=== PATIENT | male | born 1980 | race Caucasian/White ===

== ENCOUNTER 2018-07-09 13:31 | Inpatient (IN) ==
[2018-07-09] MEDS ORDERED: SENOKOT PO PRN (15:32)
[2018-07-09] MEDS ORDERED: MOTRIN PO PRN (15:32)
[2018-07-09] MEDS ORDERED: TUBERSOL ID ONE (15:32)
[2018-07-09] MEDS ORDERED: TYLENOL PO PRN (15:32)
[2018-07-09] MEDS ORDERED: ZOFRAN IV PRN (15:32)
[2018-07-09] MEDS ORDERED: SINEMET 25/100 PO PRN (15:32)
[2018-07-09] MEDS ORDERED: ATARAX PO PRN (15:32)
[2018-07-09] MEDS ORDERED: DESYREL PO PRN (15:32)
[2018-07-09] MEDS ORDERED: D5W 1,000 ML IV PRN (15:32)
[2018-07-09] MEDS ORDERED: IMODIUM PO PRN (15:32)
[2018-07-09] MEDS ORDERED: BENTYL PO PRN (15:32)
[2018-07-09] MEDS ORDERED: MAALOX PLUS LIQUID PO PRN (15:32)
[2018-07-09] MEDS ORDERED: NS 1,000 ML IV ONE (15:32)
[2018-07-09] MEDS ORDERED: ZOFRAN ODT PO PRN (15:32)
[2018-07-09] MEDS ORDERED: PHENOBARBITAL IV PRN (15:32)
[2018-07-09 16:01] LABS: HEMATOCRIT 38.8 % (42.0-52.0); HEMOGLOBIN 13.4 g/dL (14.0-18.0); MCH 29.8 PG (27-31); MCHC 34.5 g/dL (33-37); MCV 86.2 FL (81-99); MPV 8.3 FL (7.4-10.4); RBC 4.5 XMIL (4.7-6.1); RDW 12.4 % (11.5-14.5); WBC 6.84 X1000 (4.8-10.8)
[2018-07-09 16:30] LABS: INR 1.02; PROTIME 13.9 Seconds (11.0-16.0)
[2018-07-09 16:32] LABS: AMYLASE 72 U/L (20-200); LIPASE 75 U/L (13-60)
[2018-07-09 16:34] LABS: URINE SOURCE VOIDED
[2018-07-09 16:36] LABS: AGAP 9; ALBUMIN 4.6 g/dL (3.5-5.0); ALKALINE PHOSPHATASE 46 U/L (32-122); BUN 9 mg/dL (8-22); CHLORIDE 97 mmol/L (98-107); COSMO 270; CREATININE 0.8 mg/dL (0.7-1.2); ESTIMATED GFR > 60; GLUCOSE 91 mg/dL (70-104); GOT 27 U/L (10-34); GPT 24 U/L (10-44); POTASSIUM 3.9 mmol/L (3.5-5.1); SODIUM 136 mmol/L (136-145); TCO2 30 mmol/L (25-35); TOTAL PROTEIN 7.6 g/dL (6.3-8.3)
[2018-07-09 16:43] LABS: BILIRUBIN URINE NEGATIVE (NEGATIVE); BLOOD URINE NEGATIVE (NEGATIVE); CLARITY CLEAR (CLEAR); COLOR YELLOW; GLUCOSE URINE NEGATIVE (NEGATIVE); KETONE URINE NEGATIVE (NEGATIVE); LEUKOCYTES URINE NEGATIVE (NEGATIVE); NITRITE URINE NEGATIVE (NEGATIVE); PROTEIN URINE NEGATIVE (NEGATIVE); UROBILINOGEN URINE NORMAL
[2018-07-09] MEDS: ATARAX PO PRN (16:47)
[2018-07-09 16:56] LABS: UR AMPHETAMINES QUAL NONE DETECTED (NONE DETECT); UR BARBITUATES QUAL NONE DETECTED (NONE DETECT); UR BENZODIAZEPIN QUAL NONE DETECTED (NONE DETECT); UR CANNABINOIDS QUAL NONE DETECTED (NONE DETECT); UR COCAINE QUAL NONE DETECTED (NONE DETECT); UR METHADONE QUAL NONE DETECTED (NONE DETECT); UR METHAMPHETAMINE QUAL NONE DETECTED (NONE DETECT); UR OPIATES QUAL NONE DETECTED (NONE DETECT); UR OXYCODONE QUAL NONE DETECTED (NONE DETECT); UR PCP QUAL NONE DETECTED (NONE DETECT); UR PROPOXYPHENE QUAL NONE DETECTED (NONE DETECT); UR TCA QUAL NONE DETECTED (NONE DETECT)
[2018-07-09] MEDS: SUBOXONE 2 MG/0.5 MG FILM SL SCH (20:14)
[2018-07-09] MEDS: LIBRIUM PO SCH (20:33)
[2018-07-09] MEDS: TRILEPTAL PO SCH (20:34)
[2018-07-09] MEDS ORDERED: NON-FORMULARY MED (Brexpiprazole [Rexulti] 0 MG) PO SCH (21:00)
[2018-07-09] MEDS: SEROQUEL PO PRN (22:59)
[2018-07-10] MEDS: SUBOXONE 2 MG/0.5 MG FILM SL SCH ×2 (02:52→21:42)
[2018-07-10] MEDS: PROTONIX PO SCH (06:10)
--- NOTE | 2018-07-10 07:14 | HISTORY AND PHYSICAL ---
CHIEF COMPLAINT: Nausea, vomiting. HISTORY OF PRESENT ILLNESS: Patient is a 38-year-old male who presented to [facility] secondary to nausea, vomiting, abdominal pain, paresthesias, and opiate abuse. The patient states he is over taking a substance [id number] called Tiamon. He has been taking at least a bottle a day and has been doing that for quite some time. He has been attempting to stop but his symptoms become too severe. He has also been taking his only called Kava, which is more of a benzo-type product. He, again, has been abusing this as well. SOCIAL HISTORY: Patient is 38. He is single. He is on disability. Lives at home in [place]. PAST MEDICAL HISTORY: Schizophrenia, history of herpes, chronic anxiety, frequent paranoid reactions. MEDICATIONS: [*] 2 mg at bedtime, Trileptal 600 twice a day, Paxil 40, Vistaril 25 t.i.d. p.r.n. ALLERGIES: No known drug allergies. REVIEW OF SYSTEMS: CINA score is elevated to 8 secondary to nausea, vomiting, frequent temperature changes, frequent skin crawling, paroxysmal sweating, myalgias, restlessness, increased anxiety. Denies any chest pain, palpitation. Denies any fevers or chills. Denies any dysuria, frequency, urgency. Denies hesitancy, polyuria or polydipsia. FAMILY HISTORY: Noncontributory. SUBSTANCE ABUSE HISTORY: The patient has been in treatment several times over the last years. He is in [facility] in 2014 for up to 4 months and remained sober for approximately 1 year. He had attended [facility] in 2015 as an outpatient in 2014, and again in 2019, Began drinking at age 14, currently does not drink alcohol. Started marijuana at age 14, has not used in the past couple of years. Started stimulants at age 15, last use was 4-1/2 years ago. Started cocaine at age 16. Again, had not used in 4-1/2 years. Started opiates at age 18, has used off and on. Currently is taking Tiamon up to 15 or more pills a day. Started Kava at age 36, currently is taking 2 to 3 times per week. PHYSICAL EXAMINATION: VITAL SIGNS: Reviewed and stable. GENERAL: Patient is awake, alert, oriented. He is in no current respiratory distress. He is jittery and anxious with frequent episodes of fidgeting on exam. HEENT: Normocephalic. NECK: Supple. CARDIOVASCULAR: Regular rate. CHEST: Clear. ABDOMEN: Soft. EXTREMITIES: Moves all extremities. ASSESSMENT: 1. Nausea, vomiting. 2. Myalgias. 3. Paresthesias. 4. Paroxysmal sweating. 5. Polysubstance use and abuse. 6. Schizophrenia. PLAN: We will admit patient the hospital. Place him on Suboxone to wean him off Tiamon's illness. We will continue to wean over the next 3 days. Further orders as needed. cc: Je Bauer MD
--- NOTE | 2018-07-10 07:30 | PROGRESS NOTE ---
DATE: 07/10/2018 SUBJECTIVE: Patient without any new complaints. PHYSICAL EXAMINATION: Vital Signs: Reviewed and stable. Temperature 98.2 degrees, pulse 75, respiratory 20, BP 105/67. General: Patient is awake, alert. He is able to ambulate back and forth to the restroom without any difficulty. Physical exam is unchanged. HEENT: Normocephalic. Neck: Supple. Cardiovascular: Regular rate. Chest: Clear. ASSESSMENT: 1. Nausea, vomiting. 2. Abdominal pain. 3. Myalgias. 4. Paresthesias. 5. Paroxysmal sweating. 6. Polysubstance use and abuse. PLAN: We will continue patient in the hospital. Continue to wean Suboxone as tolerated. Further orders as needed. cc: Je Bauer MD
[2018-07-10] MEDS: THERA M PLUS PO SCH (09:34)
[2018-07-10] MEDS: PAXIL PO SCH (09:35)
[2018-07-10] MEDS: VITAMIN B-1 PO SCH (09:35)
[2018-07-10] MEDS: TRILEPTAL PO SCH ×2 (09:35→21:41)
[2018-07-10] MEDS: FOLIC ACID PO SCH (09:35)
[2018-07-10] MEDS: LIBRIUM PO SCH ×2 (09:35→21:41)
[2018-07-10] MEDS: NICODERM PATCH TD PRN (11:50)
[2018-07-10] MEDS ORDERED: SUBOXONE 2 MG/0.5 MG FILM SL SCH (12:00)
[2018-07-10] MEDS: ATARAX PO PRN (17:57)
[2018-07-10] MEDS: NON-FORMULARY MED PO SCH (21:41)
[2018-07-10] MEDS: SEROQUEL PO PRN ×2 (21:42→23:05)
[2018-07-11] MEDS: ATARAX PO PRN (00:47)
[2018-07-11] MEDS: PROTONIX PO SCH (06:24)
[2018-07-11] MEDS: SUBOXONE 2 MG/0.5 MG FILM SL SCH (08:48)
[2018-07-11] MEDS: PAXIL PO SCH (08:49)
[2018-07-11] MEDS: TRILEPTAL PO SCH ×2 (08:49→21:34)
[2018-07-11] MEDS: LIBRIUM PO SCH (08:49)
[2018-07-11] MEDS: THERA M PLUS PO SCH (08:49)
[2018-07-11] MEDS: VITAMIN B-1 PO SCH (08:49)
[2018-07-11] MEDS: FOLIC ACID PO SCH (08:49)
[2018-07-11] MEDS: NICODERM PATCH TD PRN (12:33)
[2018-07-11 18:39] LABS: BILIRUBIN URINE NEGATIVE (NEGATIVE); BLOOD URINE NEGATIVE (NEGATIVE); CLARITY CLEAR (CLEAR); COLOR YELLOW; GLUCOSE URINE NEGATIVE (NEGATIVE); KETONE URINE NEGATIVE (NEGATIVE); LEUKOCYTES URINE NEGATIVE (NEGATIVE); NITRITE URINE NEGATIVE (NEGATIVE); PH URINE 6.5; PROTEIN URINE NEGATIVE (NEGATIVE); UROBILINOGEN URINE NORMAL
[2018-07-11 18:43] LABS: URINE BACTERIA 1+ /HFP; URINE CAST NONE SEEN /LPF; URINE CRYSTAL NONE SEEN /HPF; URINE EPITHELIAL CELLS <10 /HPF (<10); URINE SOURCE CLEAN CATCH; URINE WBC <10 /HPF (<10); URINE YEAST NONE SEEN /HPF
[2018-07-11] MEDS ORDERED: SUBOXONE 2 MG/0.5 MG FILM SL SCH (21:00)
[2018-07-11] MEDS: NON-FORMULARY MED PO SCH (21:34)
[2018-07-11] MEDS: LIBRIUM PO PRN (21:46)
--- NOTE | 2018-07-11 22:01 | PROGRESS NOTE ---
DATE: 07/11/2018 SUBJECTIVE: Patient notes that he is still feeling terrible. He is still having muscle aches. No real nausea, vomiting, that seems to have resolved. Still having some sweating episodes. PHYSICAL EXAMINATION: Vital Signs: Reviewed. Temperature 98 degrees, pulse 82, respiratory 20, BP 121/70. General: Patient is awake, alert, currently in no respiratory distress. HEENT: Normocephalic. Neck: Supple. Cardiovascular: Regular rate. Chest: Clear. Abdomen: Soft. Extremities: Moves all extremities. ASSESSMENT: 1. Nausea, vomiting. 2. Abdominal pain. 3. Myalgias. 4. Paresthesias. 5. Paroxysmal sweating. 6. Opiate abuse, withdrawal and stabilization. 7. Chronic anxiety and depression. PLAN: We will continue patient in the hospital. We will decrease his Suboxone to 1 mg this afternoon and 2 mg this morning and we will follow. Hopefully, he will be ready for discharge over the next day or 2. cc: Je Bauer MD
[2018-07-12] MEDS: ATARAX PO PRN ×2 (01:22→08:36)
[2018-07-12] MEDS: LIBRIUM PO PRN ×2 (06:18→10:39)
[2018-07-12] MEDS: PROTONIX PO SCH (06:18)
[2018-07-12] MEDS: TRILEPTAL PO SCH ×2 (08:36→21:55)
[2018-07-12] MEDS: SUBUTEX SL SCH ×2 (08:36→21:55)
[2018-07-12] MEDS: THERA M PLUS PO SCH (08:37)
[2018-07-12] MEDS: FOLIC ACID PO SCH (08:37)
[2018-07-12] MEDS: VITAMIN B-1 PO SCH (08:37)
[2018-07-12] MEDS: PAXIL PO SCH (08:37)
[2018-07-12] MEDS: NICODERM PATCH TD PRN (11:48)
--- NOTE | 2018-07-12 19:32 | PROGRESS NOTE ---
DATE: 07/12/2018 SUBJECTIVE: Patient without new complaints. Still having some muscle aches and abdominal pain. Seems to tolerate the weaning process currently. PHYSICAL EXAMINATION: Vital Signs: Reviewed and stable. He is in no current respiratory distress. HEENT: Normocephalic. Neck: Supple. Cardiovascular: Regular rate. Chest: Clear. Abdomen: Soft. Extremities: Moves all extremities. Neurologic: No changes. ASSESSMENT: 1. Nausea and vomiting. 2. Abdominal pain. 3. Myalgias. 4. Paresthesias. 5. Paroxysmal sweating. 6. Polysubstance use and abuse. PLAN: We will continue the patient in the hospital, place him on 1 mg of Subutex today and tonight, and decrease to 1 mg tomorrow, and then hopefully discharge. cc: Je Bauer MD
[2018-07-12] MEDS: NON-FORMULARY MED PO SCH (21:55)
[2018-07-13] MEDS: PROTONIX PO SCH (06:17)
[2018-07-13] MEDS: DULCOLAX PR PRN (06:20)
[2018-07-13] MEDS ORDERED: SUBUTEX SL SCH (09:00)
[2018-07-13] MEDS: TRILEPTAL PO SCH ×2 (09:04→20:56)
[2018-07-13] MEDS: PAXIL PO SCH (09:04)
[2018-07-13] MEDS: THERA M PLUS PO SCH (09:05)
[2018-07-13] MEDS: FOLIC ACID PO SCH (09:05)
[2018-07-13] MEDS: VITAMIN B-1 PO SCH (09:05)
[2018-07-13] MEDS: NICODERM PATCH TD PRN (16:09)
[2018-07-13] MEDS: NON-FORMULARY MED PO SCH (20:56)
[2018-07-13] MEDS: SEROQUEL PO PRN (21:31)
--- NOTE | 2018-07-13 21:58 | PROGRESS NOTE ---
DATE: 07/13/2018 SUBJECTIVE: The patient has no new complaints. States he is feeling okay. Denies any suicidal or homicidal ideations. OBJECTIVE: Vital signs: Temperature 97.9, pulse 81, respiratory rate 20, BP 122/46. General: Patient is awake, alert. He is in no current respiratory distress. HEENT: Normocephalic. Neck: Supple. Cardiovascular: Regular rate. Chest: Clear. Abdomen: Soft. Extremities: Moves all extremities. ASSESSMENT: 1. Nausea and vomiting. 2. Abdominal pain. 3. Myalgias. 4. Paresthesias. 5. Paroxysmal sweating. 6. Opiate abuse, withdrawal and stabilization. 7. Chronic anxiety and depression. PLAN: Continue patient in the hospital. Wean Suboxone as tolerated. Hopefully can transition to rehab soon. cc: Je Bauer MD
[2018-07-14] MEDS: PROTONIX PO SCH ×2 (05:49→06:14)
[2018-07-14] MEDS: DULCOLAX PR PRN (05:51)
[2018-07-14] MEDS: SUBUTEX SL SCH ×2 (06:51→07:36)
[2018-07-14 07:15] VITALS: BP 123/76
[2018-07-14] MEDS: VITAMIN B-1 PO SCH (07:38)
[2018-07-14] MEDS: PAXIL PO SCH (07:38)
[2018-07-14] MEDS: TRILEPTAL PO SCH (07:38)
[2018-07-14] MEDS: FOLIC ACID PO SCH (07:38)
[2018-07-14] MEDS: THERA M PLUS PO SCH (07:39)
--- NOTE | 2018-07-14 10:16 | DISCHARGE SUMMARY ---
ADMISSION DATE: 07/09/2018 DISCHARGE DATE: 07/14/2018 DISCHARGE DIAGNOSES: 1. Nausea, vomiting. 2. Abdominal pain. 3. Myalgias. 4. Paresthesias. 5. Opiate abuse withdrawal and stabilization. 6. Chronic anxiety, depression. CONSULTATIONS: None. PROCEDURES: None. BRIEF HOSPITAL COURSE: The patient was admitted to the hospital treated in the usual fashion. Counseling performed each day by myself. He was placed on Suboxone and continue to wean down. Thankfully on discharge he is awake, alert. He is in no distress. Overall he is feeling better. Withdrawal symptoms have improved. He is still having issues with anxiety and depression. DISPOSITION: Patient be discharged to further inpatient rehab treatment for his substance abuse disorder. Discussed with him even after returning home from this he needs to can continue with outpatient drug counseling as well as life counseling. He will need to avoid all persons, places, situations which he has been using and abusing in the past. TIME SPENT: Greater than 30 minutes was spent in total care. cc: Je Bauer MD
== END 2018-07-14 10:43 | disposition home or self-care (01) | DRG 897 ==
LOC: P.DIRADM 13:40 → P.MEDSURG 14:28
PROVIDERS: ADMIT Family Medicine; ATTEND Family Medicine
CPT/HCPCS: 80053; 80104; 80301; 80305; 80307; 80320; 81001; 82055; 82150; 83690; 85027; 85610; 86580; A9270; G0431; G0434; G0477; G0480; G6040; J7030